=== PATIENT | female | born 1970 | race Caucasian/White ===

== ENCOUNTER → 2016-07-26 | Outpatient (CLI) | payer OTHER | LOC: FIMAGING 14:43 | DX: Z12.31 Encounter for screening mammogram for malignant neoplasm of breast (principal) | CPT/HCPCS: G0202 ==

== ENCOUNTER → 2017-08-01 | Outpatient (CLI) | payer OTHER | LOC: FIMAGING 12:37 | PROVIDERS: ATTEND Family Medicine | DX: Z12.31 Encounter for screening mammogram for malignant neoplasm of breast (principal) ==

== ENCOUNTER → 2018-01-10 | Outpatient (CLI) | payer OTHER | LOC: FIMAGING 16:19 | PROVIDERS: ATTEND Family Medicine | DX: M79.662 Pain in left lower leg (principal); M79.89 Other specified soft tissue disorders ==

== ENCOUNTER → 2018-08-09 | Outpatient (CLI) | payer OTHER | LOC: FIMAGING 14:28 | PROVIDERS: ATTEND Family Medicine | DX: Z12.31 Encounter for screening mammogram for malignant neoplasm of breast (principal) ==